=== PATIENT | male | born 1995 | race Caucasian/White ===

== ENCOUNTER → 2020-09-20 13:05 | Outpatient (CLI) | payer BC, SELFPAY ==
--- NOTE | ~2020-09-20 | MR_ITS ---
Corrected Report Removal of incorrect ordering physician 09/20/2020 [facility] EXAMINATION: MR ankle RT wo con DATE: 09/20/2020 13:46 INDICATION: Tendon tear. Right ankle pain post fall 3 1/2 weeks prior. TECHNIQUE: Magnetic resonance imaging (MRI) of the right ankle was performed without intravenous contrast. Sequences included sagittal, coronal, and axial proton-density weighted fast spin echo without and with fat saturation. COMPARISON: None. FINDINGS: Medial ankle ligaments: There is loss of the normally more sharply defined striated pattern along the tibial side of the deep deltoid ligament as well as thickening and increased signal along the superficial deltoid ligament with minimal surrounding soft tissue edema and mild edema in the underlying medial malleolus consistent with likely subacute partial tear/moderate grade sprain. The spring ligament complex remains normal. Lateral ankle ligaments: The prominent thickening and increased signal of the anterior inferior tibiofibular, anterior talofibular and calcaneofibular ligaments consistent with additional partial tears/moderate grade sprains. There is also marrow edema at the lateral malleolus, the lateral margin of the posterior talus and medial margin of the talar dome and neck of the talus is likely reactive with no definitive avulsion fracture identified. There is additional thickening of the medial side of the dorsal talonavicular ligament consistent with partial tear with marrow edema along its talar insertion. The posterior inferior tibiofibular and posterior talofibular ligaments are normal. Tendons: Achilles tendon is normal. The peroneus longus and brevis tendons normal. The tibialis anterior and extensor hallucis longus and extensor digitorum longus tendons are normal. The tibialis posterior, flexor digitorum longus and flexor hallucis longus tendons are normal. There is fluid in the medial and lateral sided flexor tendon sheaths consistent with tenosynovitis which may be reactive. Plantar fascia: Plantar aponeurosis is normal. Bones/other: Bone alignment is normal. Marrow edema without evident fractures associated with the ligament sprains at the ankle and hindfoot as detailed above. Joint spaces appear normal with no evident cartilage lesions. Lisfranc ligament complex and the bifurcate ligament appear normal. Fluid: Likely reactive small tibiotalar joint effusion which appears to extend into the soft tissues anterior to the ankle through a likely tear of the anterior joint capsule. IMPRESSION: 1. High ankle sprain with partial tears of the deep and superficial deltoid ligament medially, the lateral sided anterior inferior tibiofibular, anterior talofibular and calcaneofibular ligaments and at least partial tear of the anterior tibiotalar joint capsule. 2. Partial tear of the medial side of the dorsal talonavicular ligament. 3. Likely reactive marrow edema underlying any of the footplates of the affected ligaments with no definitive avulsion fractures identified. 4. Likely reactive tenosynovitis small amount of fluid extending along the tendon sheaths of the otherwise normal-appearing medial and lateral flexor tendons of the foot and ankle. Reviewed, dictated and finalized at location A. MTDD IMPRESSION: 1. High ankle sprain with partial tears of the deep and superficial deltoid lig ament medially, the lateral sided anterior inferior tibiofibular, anterior talo fibular and calcaneofibular ligaments and at least partial tear of the anterior tibiotalar joint capsule. 2. Partial tear of the medial side of the dorsal talonavicular ligament. 3. Likely reactive marrow edema underlying any of the f
== END ==
DX: S93.491A Sprain of other ligament of right ankle, initial encounter (principal); X58.XXXA Exposure to other specified factors, initial encounter
CPT/HCPCS: 73721